=== PATIENT | female | born 1980 ===

== ENCOUNTER 2018-11-30 05:12 | Inpatient (IN) | payer MEDICAID ==
[2018-11-30] MEDS ORDERED: AMPICILLIN/NS 2 GM/100 ML 2 GM/100 ML BAG IV ONE (06:12)
[2018-11-30] MEDS ORDERED: LACTATED RINGERS 1,000 ML IV SCH (07:00)
[2018-11-30 07:19] LABS: Hematocrit 31.3 % (30.3-42.9); Mean Corpuscular HGB Conc 35 % (30-34); Mean Corpuscular Volume 87 fl (79-97); Platelet Count 263 K/mm3 (140-440); Red Blood Count 3.61 M/mm3 (3.65-5.03); Red Cell Distribution Width 13.4 % (13.2-15.2)
[2018-11-30] MEDS ORDERED: CELESTONE SOLUSPAN IM SCH (08:00)
[2018-11-30] MEDS ORDERED: TYLENOL PO PRN (08:03)
[2018-11-30] MEDS ORDERED: BENADRYL PO PRN (08:03)
[2018-11-30] MEDS ORDERED: COLACE PO PRN (08:03)
[2018-11-30] MEDS ORDERED: ZOFRAN IV PRN (08:03)
[2018-11-30] MEDS ORDERED: MYLICON PO PRN (08:03)
--- NOTE | 2018-11-30 08:55 | History and Physical Report ---
History of Present Illness Date of examination: 11/30/18 Chief complaint: "My water broke" History of present illness: Pt is a 38 year old female JABARI [birth year] at 33w3d presents with gross rupture of membranes at 0400 am. She reports clear fluid, denies vaginal bleeding and reports irregular contractions. Her cervix was checked on admission and noted to be 2-3 cm dilated. She has had care at [facility] since 15 wkc complicated by advanced maternal age, glucose intolerance with a normal 3 hr GTT and h/o LGA (10 lbs). Her GBS status is unknown. Past History Past Medical History: no pertinent history Past Surgical History: no surgical history Family/Genetic History: none Social history: - Obstetrical History Expected Date of Delivery: 01/15/19 Actual Gestation: 33 Week(s) 3 Day(s) : 2 Para: 1 Hx # Term Pregnancies: 1 Number of Pregnancies: 0 Spontaneous Abortions: 0 Induced : 0 Number of Living Children: 1 Medications and Allergies Allergies Allergy/AdvReac Type Severity Reaction Status Date / Time No Known Allergies Allergy Unverified 11/30/18 06:05 Home Medications Medication Instructions Recorded Confirmed Last Taken Type Vit-Fe Fumar-FA [ 1 tab PO DAILY 11/30/18 11/30/18 11/29/18 11:00 History Vitamin] Active Meds: Active Medications Acetaminophen (Tylenol) 650 mg PO Q4H PRN PRN Reason: Pain MILD(1-3)/Fever >100.5/HARO Amoxicillin (Trimox) 250 mg PO Q8HR KLAUS; Protocol Stop: 12/07/18 13:59 Betamethasone Acet/Betameth SodPhos (Celestone Soluspan) 12 mg IM Q24HR KLAUS Stop: 11/30/18 10:01 Diphenhydramine HCl (Benadryl) 25 mg PO Q6H PRN PRN Reason: Itching Docusate Sodium (Colace) 100 mg PO Q12H PRN PRN Reason: Constipation Erythromycin (Erythromycin Base) 250 mg PO Q8HR KLAUS; Protocol Stop: 12/07/18 13:59 Lactated Ringer's (Lactated Ringers) 1,000 mls @ 125 mls/hr IV DIRECT KLAUS Last Admin: 11/30/18 08:13 Dose: 125 mls/hr Documented by: Ampicillin Sodium (Ampicillin/Ns 1 Gm/50 Ml) 1 gm in 50 mls @ 100 mls/hr IV Q4HR KLAUS; Protocol Lactated Ringer's (Lactated Ringers) 1,000 mls @ 125 mls/hr IV DIRECT KLAUS Ampicillin Sodium (Ampicillin/Ns 2 Gm/100 Ml) 2 gm in 100 mls @ 100 mls/hr IV Q6HR KLAUS; Protocol Stop: 12/02/18 06:59 Erythromycin Lactobionate 250 (mg/ Sodium Chloride) 100 mls @ 100 mls/hr IV Q6HR KLAUS; Protocol Stop: 12/02/18 00:59 Multivitamins/Iron/Calcium ( Vitamin) 1 each PO QDAY KLAUS Ondansetron HCl (Zofran) 4 mg IV Q6H PRN PRN Reason: Nausea And Vomiting Simethicone (Mylicon) 80 mg PO Q6H PRN PRN Reason: Gas pain Zolpidem Tartrate (Ambien) 10 mg PO ONCE PRN PRN Reason: Sleep Review of Systems All systems: negative - Vital Signs Vital signs: Vital Signs Pulse BP 83 137/82 11/30/18 05:31 11/30/18 05:31 Temp Pulse Resp BP Pulse Ox 93 H 98/61 11/30/18 08:28 11/30/18 08:28 - Physical Exam Breasts: Positive: deferred Cardiovascular: Regular rate Lungs: Positive: Clear to auscultation Abdomen: Positive: soft (gravid) Genitourinary (Female): Positive: normal external genitalia Uterus: Positive: enlarged (gravid ) Extremities: Positive: normal - Obstetrical FHR: auscultation normal Uterine Contraction Pattern: Irregular Uterine Tone Measurement Phase: Resting Uterine Contraction Intensity: Mild Results Result Diagrams: 11/30/18 06:57 Abnormal lab results 11/30/18 Range/Units 06:57 RBC 3.61 L (3.65-5.03) M/mm3 MCHC 35 H (30-34) % All other labs normal. Assessment and Plan A: IUP at 33w3d PPROM AMA Glucose Intolerance GBS unknown H/o LGA P: Admit to antepartum service Latency antibiotics Betamethasone series NICU consult BPP for well being Closely monitor maternal and status
[2018-11-30] MEDS ORDERED: PRENATAL VITAMIN PO SCH (10:00)
[2018-11-30] MEDS ORDERED: AMPICILLIN/NS 1 GM/50 ML 1 GM/50 ML BAG IV SCH (10:00)
--- NOTE | 2018-11-30 10:33 | Ultrasound Report ---
ULTRASOUND BIOPHYSICAL PROFILE INDICATION: PPROM, 33 wks, well being. COMPARISON: None available. FINDINGS: Transabdominal ultrasound with Doppler interrogation. heart rate is 150 beats per minute. breathing movement = 2 Gross body movement = 2 tone = 2 Qualitative amniotic fluid volume = 2 IMPRESSION: biophysical profile = 09/14 Signer Name: Kirit Jarvis Signed: 11/30/2018 10:29 AM Workstation Name: [id number]
--- NOTE | 2018-11-30 10:50 | Ultrasound Report ---
OB ULTRASOUND >= 14 WEEKS FETUS / US OB follow up INDICATION: PPROM, 33 wks, well being. COMPARISON: None. FINDINGS: Transabdominal grayscale ultrasound with Doppler interrogation. A single gestation intrauterine is present with cephalic presentation. heart tones me asure 157 bpm. Amniotic fluid volume is normal with a fluid index of 13.4 cm. Visualized intracranial and abdominal appearance shows no sonographic abnormality. Biparietal diameter is 8.7 cm which equals 35 weeks and 0 days. Head circumference is 31.5 cm which equals 35 weeks and 3 days. Abdominal circumference is 32.6 cm which equals 36 weeks and 3 days. Femur length is 6.5 cm which equals 33 weeks and 2 days. HC/AC equals 0.97 Cephalic index is 83.3 Estimated weight is 2669 g. Clinical age is 37 weeks and 0 days and EDC of 12/21/2018. Overall estimated sonographic age is 35 weeks and 0 days with EDC of 01/04/2019 IMPRESSION: Single, viable intrauterine gestation with ultrasound estimated age of 35 weeks and 0 da ys and EDC of 01/04/2019, currently in cephalic lie with details, as above. Please also correlate for accuracy of the LMP to explain approximately 2 weeks discrepancy with the clinical age. Thank you for the opportunity to participate in this patient's care. Signer Name: Kirit Jarvis Signed: 11/30/2018 10:46 AM Workstation Name: [id number]
[2018-11-30] MEDS: ERYTHROMYCIN LACTOBIONATE 250 MG in NACL 0.9% 100 ML IV SCH ×4 (11:37→23:17)
[2018-11-30] MEDS: AMPICILLIN/NS 2 GM/100 ML 2 GM/100 ML BAG IV SCH ×2 (13:44→20:10)
[2018-11-30] MEDS: LACTATED RINGERS 1,000 ML IV SCH (17:30)
--- NOTE | 2018-11-30 21:13 | Event Note ---
Date: 11/30/18 Late entry. Pt examined around 545 pm. Contacted by pt's nurse secondary to pt feeling more pain. Category II tracing. SVE: /-2. Continue current management. Closely monitor for chorioamnionitis
[2018-11-30] MEDS ORDERED: AMBIEN PO PRN (22:00)
[2018-12-01] MEDS: AMPICILLIN/NS 2 GM/100 ML 2 GM/100 ML BAG IV SCH (01:52)
[2018-12-01] MEDS: LACTATED RINGERS 1,000 ML IV SCH (03:00)
[2018-12-01] MEDS ORDERED: SUBLIMAZE IV ONE (03:37)
[2018-12-01 04:39] LABS: Hematocrit 33.7 % (30.3-42.9); Hemoglobin 11.4 gm/dl (10.1-14.3); Mean Corpuscular HGB Conc 34 % (30-34); Mean Corpuscular Volume 88 fl (79-97); Platelet Count 260 K/mm3 (140-440); Red Blood Count 3.82 M/mm3 (3.65-5.03); Red Cell Distribution Width 13.2 % (13.2-15.2)
[2018-12-01] MEDS ORDERED: PITOCin/NS 20 UNIT/1000ML DRIP 40,000 MILLIUNITS/2,000 ML BAG IV ONE (05:06)
--- NOTE | 2018-12-01 05:11 | Anesthesia Consultation ---
Anesthesia Consult and Med Hx Date of service: 12/01/18 - Airway Anesthetic Teeth Evaluation: Good, Caps ROM Head & Neck: Adequate Mental/Hyoid Distance: Adequate Mallampati Class: Class II - Pulmonary Exam CTA: Yes - Cardiac Exam Cardiac Exam: RRR - Pre-Operative Health Status ASA Pre-Surgery Classification: ASA2 Proposed Anesthetic Plan: Epidural - Pulmonary Hx Smoking: No Hx Asthma: No Hx Respiratory Symptoms: No SOB: No COPD: No Home Oxygen Therapy: No Hx Pneumonia: No Hx Sleep Apnea: No - Cardiovascular System Hx Hypertension: No Hx Coronary Artery Disease: No Hx Heart Attack/AMI: No Hx Angina: No Hx Percutaneous Transluminal Coronary Angioplasty (PTCA): No Hx Cardia Arrhythmia: No Hx Pacemaker: No Hx Internal Defibrillator: No Hx Valvular Heart Disease: No Hx Heart Murmur: No Hx Peripheral Vascular Disease: No - Central Nervous System Hx Neuromuscular Disorder: No Hx Seizures: No CVA: No Hx Back Pain: No Hx Psychiatric Problems: No - Gastrointestinal Hx Ulcer: No Hx Gastroesophageal Reflux Disease: No - Endocrine Hx Renal Disease: No Hx End Stage Renal Disease: No Hx Cirrhosis: No Hx Liver Disease: No Hx Insulin Dependent Diabetes: No Hx Non-Insulin Dependent Diabetes: No Hx Thyroid Disease: No Hx Hypothyroidism: No Hx Hyperthyroidism: No - Hematic Hx Anemia: No Hx Sickle Cell Disease: No - Other Systems Hx Alcohol Use: No Hx Substance Use: No Hx Cancer: No Hx Obesity: Yes (BMI 30)
[2018-12-01] MEDS ORDERED: NALOXONE IV PRN (05:12)
[2018-12-01] MEDS ORDERED: PITOCin/NS 30 UNIT/500ML 30,000 MILLIUNITS/500 ML BAG IV ONE (05:31)
[2018-12-01] MEDS ORDERED: fentaNYL-BUPIV 2 MCG/ML-0.125% 200 MCG/100 ML BAG EPIDURAL SCH (06:00)
--- NOTE | 2018-12-01 06:01 | Procedure Note ---
OB Delivery Note - Delivery Date of Delivery: 12/01/18 Surgeon: RHIANNA KOHLER Estimated blood loss: 300cc - Vaginal Delivery presentation: vertex Delivery position: OA Intrapartum events: PROM->1hr before delivery, decreased FHT variability, mult. late decelerations Delivery induction: none Delivery augmentation: pitocin Delivery monitor: external FHT, external uterine Route of delivery: Delivery placenta: spontaneous Delivery cord: 3 umbilical vessels Episiotomy: none Delivery laceration: 1st degree (Repaired with two figure of eights of 3-0 Vicryl ) Delivery repair: vicryl Anesthesia: epidural - A at 1 minute: 8 at 5 minutes: 9 Infant Gender: Male (2606g (5lb 11.9 oz) @ 0543 am)
[2018-12-01] MEDS ORDERED: NORCO 5/325 PO PRN (10:40)
[2018-12-01] MEDS ORDERED: LANSINOH TP PRN ×2 (10:40)
[2018-12-01] MEDS ORDERED: PHENERGAN PR PRN (10:40)
[2018-12-01] MEDS ORDERED: TYLENOL PO PRN (10:40)
[2018-12-01] MEDS ORDERED: PHENERGAN PO PRN (10:40)
[2018-12-01] MEDS ORDERED: SODIUM CHLORIDE FLUSH SYRINGE 10 ML IV NR (10:40)
[2018-12-01] MEDS ORDERED: TUCKS PAD TP PRN (10:40)
[2018-12-01] MEDS ORDERED: DERMOPLAST TP PRN (10:40)
[2018-12-01] MEDS ORDERED: BENADRYL PO PRN (10:40)
[2018-12-01] MEDS ORDERED: DULCOLAX PR PRN (10:40)
[2018-12-01] MEDS ORDERED: ZOFRAN IV PRN (10:40)
[2018-12-01] MEDS ORDERED: PITOCin/NS 20 UNIT/1000ML DRIP 20 UNITS/1,000 ML BAG IV SCH (10:40)
[2018-12-01] MEDS ORDERED: AFLURIA QUAD 2019-2020 (3YR UP) IM ONE (12:00)
[2018-12-01] MEDS: IBUPROFEN PO SCH ×3 (12:05→23:50)
[2018-12-01] MEDS: FEOSOL PO SCH ×2 (12:05→21:39)
[2018-12-01] MEDS ORDERED: MILK OF MAGNESIA PO PRN (22:00)
[2018-12-02] MEDS: IBUPROFEN PO SCH ×2 (05:31→12:15)
[2018-12-02] MEDS ORDERED: BOOSTRIX IM ONE (06:00)
[2018-12-02] MEDS: FEOSOL PO SCH ×2 (09:57→10:04)
[2018-12-02] MEDS ORDERED: M-M-R II VACCINE SUB-Q ONE (10:00)
--- NOTE | 2018-12-02 13:28 | Post Anesthesia Evaluation ---
- Post Anesthesia Evaluation Patient Participated: Yes Airway Patent: Yes Stable Respiratory Function: Yes Nausea/Vomiting: No Temp > 96.8F: Yes Pain Manageable: Yes Adequeate Hydration: Yes Anesthesia Complications: No Block Receding Appropriately: Yes Patient on Ventilator: No
[2018-12-02] MEDS ORDERED: ERYTHROMYCIN BASE PO SCH (14:00)
[2018-12-02] MEDS ORDERED: TRIMOX PO SCH (14:00)
--- NOTE | 2018-12-02 15:24 | Progress Note ---
Assessment and Plan PPD 1 s/p at 33 weeks. Pt is complaining of headache. The is in NICU due to prematurity.Pt is ready to be discharged on today. Subjective - Subjective Date of service: 12/02/18 Principal diagnosis: PPROM Patient reports: appetite normal, voiding normally, pain well controlled, ambulating normally [place]: in NICU Objective - Vital Signs Latest vital signs: Vital Signs Temp Pulse Resp BP BP Pulse Ox 12/02/18 08:43 97.9 F 75 18 107/70 12/02/18 05:31 18 12/02/18 01:14 97.7 F 66 18 96/56 97 12/01/18 23:50 18 Intake and Output 12/02/18 12/02/18 12/02/18 06:59 14:59 22:59 Intake Total 360 480 Balance 360 480 Intake: Oral 480 Intake, Free Water 360 Other: Total, Intake Amount 480 # Voids Void 2 - Exam Breasts: Present: deferred Cardiovascular: Present: Regular rate, Normal S1, Normal S2 Lungs: Present: Clear to auscultation, Normal air movement Abdomen: Present: normal appearance, normal bowel sounds Vulva: both: normal Uterus: Present: normal, firm Extremities: Present: normal Deep Tendon Reflex Grade: Normal +2 - Labs Labs: Abnormal lab results 12/01/18 Range/Units 17:56 Hgb 10.0 L (10.1-14.3) gm/dl Hct 30.0 L (30.3-42.9) %
--- NOTE | 2018-12-02 15:27 | Discharge Summary ---
Providers - Providers Date of Admission: 11/30/18 06:12 Date of discharge: 12/02/18 Attending physician: RHIANNA KOHLER 12/01/18 08:00 Consult to Physician [CONS] Routine Comment: Consulting Provider: CLARISA DAVALOS Physician Instructions: Reason For Exam: IUP at 33 wks, PPROM Primary care physician: RHIANNA KOHLER Hospitalization Reason for admission: labor Delivery: Episiotomy: none Other procedures: none Discharge diagnosis: IUP at term delivered Elizabeth baby: male Hospital course: unremarkable Condition at discharge: Good Disposition: DC-01 TO HOME OR SELFCARE Plan - Discharge Medications Prescriptions: Ibuprofen [Motrin 600 MG tab] 600 mg PO Q6H #30 tablet HYDROcodone/APAP 5-325 [[place] 5-325 mg TAB] 2 each PO Q6H PRN #14 tablet PRN Reason: Pain, Moderate (4-6) - Provider Discharge Summary Activity: routine, no sex for 6 weeks, no heavy lifting 4 weeks, no strenuous exercise Diet: routine Instructions: routine Additional instructions: [] Smoking cessation referral if applicable(refer to patient education folder for contact #) [] Refer to [facility]'s [facility] Booklet Call your doctor immediately for: * Fever > 100.5 * Heavy vaginal bleeding ( >1 pad per hour) * Severe persistent headache * Shortness of breath * Reddened, hot, painful area to leg or breast * Drainage or odor from incision. * Keep incision clean and dry at all times and follow doctor's instructions regarding bathing/showering - Follow up plan Follow up: RHIANNA KOHLER MD [Primary Care Provider] - 6 Weeks
[2018-12-02 18:10] VITALS: BP 117/74
== END 2018-12-02 16:30 | disposition home or self-care (01) | DRG 775 ==
LOC: TRG 05:12 → LD 05:52 → OBSVTOIN 06:12 → TRG 06:12 → LD 06:12 → INTOOBSV 06:12 → OB 12-01 10:39
PROVIDERS: ADMIT Obstetrics & Gynecology; ATTEND Obstetrics & Gynecology
PROC: 10E0XZZ Delivery of Products of Conception, External Approach (ICD-10-PCS; principal; 2018-12-01)
PROC: 3E0R3BZ Introduction of Anesthetic Agent into Spinal Canal, Percutaneous Approach (ICD-10-PCS; 2018-12-01)
PROC: 00HU33Z Insertion of Infusion Device into Spinal Canal, Percutaneous Approach (ICD-10-PCS; 2018-12-01)
PROC: 0HQ9XZZ Repair Perineum Skin, External Approach (ICD-10-PCS; 2018-12-01)
PROC: 3E0234Z Introduction of Serum, Toxoid and Vaccine into Muscle, Percutaneous Approach (ICD-10-PCS; 2018-12-02)
DX: O60.14X0 Preterm labor third trimester with preterm delivery third trimester, not applicable or unspecified (principal); O76 Abnormality in fetal heart rate and rhythm complicating labor and delivery; O99.214 Obesity complicating childbirth; O99.814 Abnormal glucose complicating childbirth; O70.0 First degree perineal laceration during delivery; Z37.0 Single live birth; Z3A.33 33 weeks gestation of pregnancy; Z23 Encounter for immunization
CPT/HCPCS: 36415; 76816; 76819; 85014; 85018; 85027; 86850; 86900; 86901; 88307; 90471; 90686; 90715; G0378; J0290; J0702; J1364; J2590; J3010; J7120